=== PATIENT | female | born 1985 | race Caucasian/White ===

== ENCOUNTER → 2019-04-21 09:16 | Outpatient (CLI) | payer OTHER, SELFPAY ==
--- NOTE | 2019-05-04 10:04 | P.HOLT.S_ITS ---
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 No evidence to support association of patient's sense of palpitations with any specific cardiac dysrhythmia
== END ==
PROVIDERS: Visit Provider Family Medicine
DX: R00.2 Palpitations (principal)
CPT/HCPCS: 0296T; 0298T

== ENCOUNTER → 2019-10-24 12:25 | Outpatient (CLI) | payer OTHER, MEDICAID, SELFPAY ==
[2019-10-24 16:28] LABS: TSH w/ Reflex to FT4 1.52 uIU/mL (0.47-4.68)
== END ==
PROVIDERS: PCP Family Medicine; Referring Provider Family Medicine; Visit Provider Family Medicine
DX: E03.9 Hypothyroidism, unspecified (principal)
CPT/HCPCS: 36415; 82306; 84443

== ENCOUNTER → 2020-05-18 09:05 | Outpatient (CLI) | payer OTHER, MEDICAID, SELFPAY ==
--- NOTE | 2020-05-18 09:05 | DI.US.S_ITS ---
PROCEDURE: US PELVIC COMPLETE INDICATIONS: LEFT LOWER QUADRANT PAIN. ?OVARIAN CYST TECHNIQUE: Real-time scanning was performed of the pelvic organs, with image documentation. Additional endovaginal scanning was necessary due to incomplete visualization of the adnexal and endometrial structures by transabdominal scanning. COMPARISON: None. FINDINGS: Uterus: Uterus is normal in size at 8.2 x 5.5 x 3.5 cm. The endometrium measures 6 mm in combined thickness. Small amount of fluid is noted in the endocervical canal. Ovaries: The right ovary measures 3.8 x 2.6 x 2.1 cm. The left ovary measures 3.4 x 1.1 x 1.2 cm. A right ovarian cyst measures 1.7 x 1.9 x 1.2 cm with a peripheral septation with blood flow. Arterial and venous Doppler flow seen within the right ovary. Left ovarian Doppler flow is not well seen, which may be related to the positioning of the ovary. Other: No pathologic free abdominal or pelvic fluid. IMPRESSION: 1. Left ovarian blood flow is not well demonstrated, which may be related to relatively deep positioning. The ovaries are symmetric in size without sonographic signs of ovarian torsion. 2. Right ovarian 1.9 cm cyst with a peripheral septation, most likely physiologic. Repeat ultrasound may be obtained in 6-12 weeks to re-evaluate. Dictated by: Valeriy Call M.D. on 05/18/2020 at 11:36 Approved by: Valeriy Call M.D. on 05/18/2020 at 11:59
== END ==
PROVIDERS: PCP Family Medicine; Referring Provider Family Medicine; Visit Provider Family Medicine
DX: R10.32 Left lower quadrant pain (principal); N83.201 Unspecified ovarian cyst, right side
CPT/HCPCS: 76830; 76856